=== PATIENT | male | born 1985 | race Caucasian/White ===

== ENCOUNTER 2024-06-22 21:38 | Emergency (ER) | payer OTHER ==
[~2024-06-22] VITALS: Ht 170.2 cm; Wt 68.0 kg
[2024-06-22 21:44] VITALS: O2SAT 97
[2024-06-22 23:43] LABS: CHLORIDE 101 mEq/L (98-107); POTASSIUM 4.2 mEq/L (3.5-5.1); SODIUM 136 mEq/L (136-145)
[2024-06-22 23:44] LABS: CARBON DIOXIDE 23 mEq/L (21-32)
[2024-06-22 23:45] LABS: CALCIUM 9.8 mg/dL (8.7-10.4)
[2024-06-22 23:49] LABS: GLUCOSE 118 mg/dL (70-105); UREA NITROGEN BLOOD 19 mg/dL (9-23)
[2024-06-22 23:50] LABS: HEMATOCRIT. 40.7 % (42.0-52.0); HEMOGLOBIN. 13.6 g/dL (14.0-18.0); MEAN CORPUSCULAR HEMOGLOBIN 29.1 pg (28.0-32.0); MEAN CORPUSCULAR HGB CONC 33.4 g/dL (31.0-37.0); MEAN CORPUSCULAR VOLUME 87.2 fL (80.0-94.0); MEAN PLATELET VOLUME 8.3 fl (7.4-10.4); PLATELET 216 x1000/uL (130-400); RED BLOOD CELL COUNT 4.67 mill/uL (4.7-6.1); RED CELL DISTRIBUTION WIDTH 13.8 % (11.6-14.6)
[2024-06-22 23:55] LABS: TROPONIN I HIGH SENSITIVITY < 4 ng/L (3.0-53)
[2024-06-23 00:46] LABS: DIFFERENTIAL COMMENT 1
[2024-06-23 03:57] LABS: TROPONIN I HIGH SENSITIVITY < 4 ng/L (3.0-53)
[2024-06-23 05:31] VITALS: BP 118/62; PULSE 121; RESP 23; TEMP 36.83628; O2SAT 96
[2024-06-23 07:49] LABS: ATYPICAL LYMPHOCYTES 1; PLATELET ESTIMATE NORMAL
== END 2024-06-23 05:44 | disposition home or self-care (01) ==
LOC: ER 21:38
DX: R55 Syncope and collapse (principal); I10 Essential (primary) hypertension; E11.9 Type 2 diabetes mellitus without complications
CPT/HCPCS: 99285; 80048; 85025; 84484 ×2; 36415 ×2; 93005; A4663; A4606